=== PATIENT | female | born 1955 | race African-American/Black ===

== ENCOUNTER 2016-06-27 05:51 | Emergency (ER) | payer MEDICAID ==
[~2016-06-27] VITALS: Ht 165.1 cm; Wt 96.0 kg
[2016-06-27] MEDS ORDERED: MORPHINE SULFATE 4 MG/ML CPJ (NOT FOR IM USE) IV STA (06:28)
[2016-06-27] MEDS ORDERED: SODIUM CHLORIDE 0.9% 1,000 ML IV ONE (06:28)
[2016-06-27] MEDS ORDERED: ONDANSETRON HCL 4MG/2ML VIAL IV STA (06:28)
[2016-06-27 06:49] LABS: BASOPHILS % 0.4 % (0.0-2.0); EOSINOPHILS % 0.3 % (0.0-5.0); HEMATOCRIT. 39.6 % (36.0-48.0); HEMOGLOBIN. 13.3 g/dL (12.0-16.0); MEAN CORPUSCULAR HEMOGLOBIN 29.3 pg (28.0-32.0); MEAN CORPUSCULAR HGB CONC 33.6 g/dL (31.0-37.0); MEAN CORPUSCULAR VOLUME 87.1 fL (81.0-99.0); MEAN PLATELET VOLUME 7.8 fl (7.4-10.4); MONOCYTES % 3.9 % (2.0-8.0); NEUTROPHILS % 72.4 % (40.0-76.0); PLATELET 239 x1000/uL (130-400); RED BLOOD CELL COUNT 4.54 mill/uL (4.2-5.4); RED CELL DISTRIBUTION WIDTH 12.5 % (11.6-14.6); WHITE BLOOD COUNT 9.7 x1000/uL (4.5-11.0)
[2016-06-27 06:55] LABS: PROTHROMBIN TIME 10.6 sec
[2016-06-27 07:02] LABS: ALANINE AMINOTRANSFERASE 26 IU/L (13-61); ALBUMIN 3.5 g/dL (3.4-5.0); ANION GAP 12; CALCIUM 8.6 mg/dL (8.5-10.1); CARBON DIOXIDE 26 mEq/L (21-32); CHLORIDE 110 mEq/L (98-107); INDEX HEMOLYSI 1 (1-3); INDEX ICTERIC 1 (1-4); INDEX LIPEMIC 1 (1-3); UREA NITROGEN BLOOD 19 mg/dL (7-21); eGFR > 60 mL/min (>60)
[2016-06-27 10:45] LABS: CLARITY URINE TURBID (CLEAR); COLOR URINE YELLOW (YELLOW); GLUCOSE URINE NEGATIVE (NEGATIVE); KETONES URINE NEGATIVE (NEGATIVE); LEUKOCYTE ESTERASE URINE 3+ (NEGATIVE); NITRITE URINE POSITIVE (NEGATIVE); OCCULT BLOOD URINE NEGATIVE (NEGATIVE); PROTEIN URINE NEGATIVE (NEGATIVE); SPECIFIC GRAVITY URINE 1.026 (1.005-1.030); UROBILINOGEN URINE 0.2 E.U./dL (0.2-1.0)
[2016-06-27 10:57] LABS: SQUAMOUS EPITHELIAL CELL URINE 3+ /lpf (RARE/1+)
[2016-06-27 10:58] LABS: BACTERIA URINE 3+; TRICHOMONAS URINE 1+; WBC URINE 25-50 /hpf (0-2)
[2016-06-27 10:59] LABS: RBC URINE 0-2 /hpf (0-2)
[2016-06-27 12:00] VITALS: BP 134/74
== END 2016-06-27 12:28 | disposition home or self-care (01) ==
LOC: ER 05:57 → SUPCPDRO 06-30 16:36
DX: S80.12XA Contusion of left lower leg, initial encounter (principal); N39.0 Urinary tract infection, site not specified; F17.210 Nicotine dependence, cigarettes, uncomplicated; V09.9XXA Pedestrian injured in unspecified transport accident, initial encounter; Y93.89 Activity, other specified; Y92.488 Other paved roadways as the place of occurrence of the external cause; Y99.8 Other external cause status
CPT/HCPCS: 29515; 36415; 72100; 73502; 73552; 73590; 73630; 80053; 81001; 85025; 85610; 93005; 96361; 96374; 96375; 99285; J2270; J2405; J7030; Z7610

== ENCOUNTER 2016-08-07 14:48 | Inpatient (IN) | payer MEDICAID ==
[~2016-08-07] VITALS: Ht 165.1 cm; Wt 97.5 kg
[~2016-08-07 14:48] MED LIST: AMOX1TAB16 PO; HYDR-523 PO; SILV20CR14 TOP
[2016-08-07] MEDS ORDERED: NAPR-679 PO (15:05)
[2016-08-07] MEDS ORDERED: PIPERACILLIN/TAZ 3.375G PREMIX 50 ML IV ONE (17:00)
[2016-08-07] MEDS ORDERED: VANCOMYCIN 1 G PREMIX 200 ML IV ONE (17:00)
[2016-08-07 17:35] LABS: EOSINOPHILS % 1.2 % (0.0-5.0); HEMATOCRIT. 37.6 % (36.0-48.0); HEMOGLOBIN. 12.7 g/dL (12.0-16.0); LYMPHOCYTES % 37.7 % (20.0-50.0); MEAN CORPUSCULAR HEMOGLOBIN 29.2 pg (28.0-32.0); MEAN CORPUSCULAR HGB CONC 33.8 g/dL (31.0-37.0); MEAN CORPUSCULAR VOLUME 86.3 fL (81.0-99.0); MEAN PLATELET VOLUME 7.8 fl (7.4-10.4); MONOCYTES % 4.2 % (2.0-8.0); NEUTROPHILS % 55.9 % (40.0-76.0); PLATELET 285 x1000/uL (130-400); RED BLOOD CELL COUNT 4.36 mill/uL (4.2-5.4); RED CELL DISTRIBUTION WIDTH 13.2 % (11.6-14.6); WHITE BLOOD COUNT 5.4 x1000/uL (4.5-11.0)
[2016-08-07 17:51] LABS: ALANINE AMINOTRANSFERASE 20 IU/L (13-61); ALBUMIN 3.7 g/dL (3.4-5.0); ANION GAP 13; CALCIUM 9.1 mg/dL (8.5-10.1); CARBON DIOXIDE 25 mEq/L (21-32); CHLORIDE 109 mEq/L (98-107); INDEX HEMOLYSI 1 (1-3); INDEX ICTERIC 1 (1-4); INDEX LIPEMIC 1 (1-3); UREA NITROGEN BLOOD 16 mg/dL (7-21); eGFR > 60 mL/min (>60)
[2016-08-07 18:03] LABS: CLARITY URINE CLEAR (CLEAR); COLOR URINE YELLOW (YELLOW); GLUCOSE URINE NEGATIVE (NEGATIVE); KETONES URINE NEGATIVE (NEGATIVE); LEUKOCYTE ESTERASE URINE 1+ (NEGATIVE); NITRITE URINE NEGATIVE (NEGATIVE); OCCULT BLOOD URINE NEGATIVE (NEGATIVE); PH URINE 5.5 (4.5-8.0); PROTEIN URINE NEGATIVE (NEGATIVE); SPECIFIC GRAVITY URINE 1.029 (1.005-1.030)
[2016-08-07 18:53] LABS: BACTERIA URINE 2+; RBC URINE 0-2 /hpf (0-2); SQUAMOUS EPITHELIAL CELL URINE 1+ /lpf (RARE/1+)
[2016-08-07] MEDS ORDERED: ACETAMINOPHEN 325MG TABLET PO PRN (19:15)
[2016-08-07] MEDS ORDERED: ONDANSETRON HCL 4MG/2ML VIAL IV PRN (19:15)
[2016-08-07] MEDS ORDERED: CLONIDINE 0.1MG TABLET PO PRN (19:15)
[2016-08-07] MEDS ORDERED: IPRATROPIUM/ALBUTEROL 0.5-3(2.5)MG/3ML NEB INH PRN (19:15)
[2016-08-07 21:52] VITALS: BP 118/76
[2016-08-07 22:30] VITALS: BP 115/75
[2016-08-08] VITALS: BP 115/75
[2016-08-08] MEDS: HYDROCODONE/ACETAMINOPHEN 5/325MG TABLET PO PRN ×3 (01:10→18:44)
[2016-08-08] MEDS: CEFTRIAXONE 1 G PREMIX 50 ML IV SCH (01:14)
[2016-08-08 04:00] VITALS: BP 102/65
[2016-08-08] MEDS ORDERED: HYDROCODONE/ACETAMINOPHEN 5/325MG TABLET PO PRN (05:45)
[2016-08-08 07:15] LABS: BASOPHILS % 0.7 % (0.0-2.0); EOSINOPHILS % 2.4 % (0.0-5.0); HEMATOCRIT. 36.3 % (36.0-48.0); HEMOGLOBIN. 12.1 g/dL (12.0-16.0); LYMPHOCYTES % 31.4 % (20.0-50.0); MEAN CORPUSCULAR HEMOGLOBIN 29.1 pg (28.0-32.0); MEAN CORPUSCULAR HGB CONC 33.4 g/dL (31.0-37.0); MONOCYTES % 7.6 % (2.0-8.0); NEUTROPHILS % 57.9 % (40.0-76.0); PLATELET 252 x1000/uL (130-400); RED BLOOD CELL COUNT 4.17 mill/uL (4.2-5.4); RED CELL DISTRIBUTION WIDTH 12.9 % (11.6-14.6); WHITE BLOOD COUNT 4.2 x1000/uL (4.5-11.0)
[2016-08-08 07:21] LABS: ALANINE AMINOTRANSFERASE 20 IU/L (13-61); ALBUMIN 3.2 g/dL (3.4-5.0); ANION GAP 11; CALCIUM 8.6 mg/dL (8.5-10.1); CARBON DIOXIDE 26 mEq/L (21-32); CHLORIDE 109 mEq/L (98-107); INDEX HEMOLYSI 1 (1-3); INDEX ICTERIC 1 (1-4); INDEX LIPEMIC 1 (1-3); TRIGLYCERIDE 186 mg/dL (0-150); UREA NITROGEN BLOOD 15 mg/dL (7-21); eGFR > 60 mL/min (>60)
[2016-08-08 07:25] LABS: HDL CHOLESTEROL 34 mg/dL (40-59); LDL CHOLESTEROL 139 mg/dL (5-100); TROPONIN I < 0.02 ng/mL (0.00-0.04)
[2016-08-08 08:00] VITALS: BP 107/63
[2016-08-08 12:00] VITALS: BP 115/64
[2016-08-08 16:00] VITALS: BP 124/104
[2016-08-08 20:20] VITALS: BP 97/58
[2016-08-09] VITALS: BP 100/64
[2016-08-09] MEDS: CEFTRIAXONE 1 G PREMIX 50 ML IV SCH (01:00)
[2016-08-09] MEDS: DIPHENHYDRAMINE 50MG/ML VIAL IV PRN (01:14)
[2016-08-09 05:15] VITALS: BP 101/77
[2016-08-09 08:00] VITALS: BP 112/64
[2016-08-09] MEDS: HYDROCODONE/ACETAMINOPHEN 5/325MG TABLET PO PRN (11:08)
[2016-08-09 12:00] VITALS: BP 108/68
[2016-08-09 16:00] VITALS: BP 99/55
[2016-08-09 20:00] VITALS: BP 98/64
[2016-08-10] VITALS: BP 115/59
[2016-08-10] MEDS: DIPHENHYDRAMINE 50MG/ML VIAL IV PRN (01:32)
[2016-08-10] MEDS: CEFTRIAXONE 1 G PREMIX 50 ML IV SCH (03:09)
[2016-08-10 04:00] VITALS: BP 109/65
[2016-08-10 08:00] VITALS: BP 114/71
[2016-08-10 12:00] VITALS: BP 110/75
[2016-08-10] MEDS: HYDROCODONE/ACETAMINOPHEN 5/325MG TABLET PO PRN (13:49)
[2016-08-10 16:00] VITALS: BP 111/71
[2016-08-10 20:00] VITALS: BP 110/73
[2016-08-10] MEDS: ATORVASTATIN CALCIUM 10MG TABLET PO SCH (22:08)
[2016-08-10] MEDS: NEOMY SULF/BACITRAC ZN/POLY OINT 28GM TOP SCH (22:09)
[2016-08-11] VITALS: BP 109/61
[2016-08-11] MEDS: CEFTRIAXONE 1 G PREMIX 50 ML IV SCH (02:12)
[2016-08-11 04:00] VITALS: BP 127/71
[2016-08-11] MEDS: HYDROCODONE/ACETAMINOPHEN 5/325MG TABLET PO PRN ×4 (04:22→23:08)
[2016-08-11 06:45] LABS: ANION GAP 12; CARBON DIOXIDE 25 mEq/L (21-32); CHLORIDE 106 mEq/L (98-107); INDEX HEMOLYSI 1 (1-3); INDEX ICTERIC 1 (1-4); INDEX LIPEMIC 1 (1-3); UREA NITROGEN BLOOD 20 mg/dL (7-21); eGFR > 60 mL/min (>60)
[2016-08-11 06:53] LABS: BASOPHILS % 0.5 % (0.0-2.0); EOSINOPHILS % 1.6 % (0.0-5.0); HEMATOCRIT. 36.2 % (36.0-48.0); HEMOGLOBIN. 12.5 g/dL (12.0-16.0); LYMPHOCYTES % 47.5 % (20.0-50.0); MEAN CORPUSCULAR HEMOGLOBIN 29.5 pg (28.0-32.0); MEAN CORPUSCULAR HGB CONC 34.6 g/dL (31.0-37.0); MEAN CORPUSCULAR VOLUME 85.2 fL (81.0-99.0); MEAN PLATELET VOLUME 8.5 fl (7.4-10.4); MONOCYTES % 6.6 % (2.0-8.0); NEUTROPHILS % 43.8 % (40.0-76.0); PLATELET 260 x1000/uL (130-400); RED BLOOD CELL COUNT 4.25 mill/uL (4.2-5.4); RED CELL DISTRIBUTION WIDTH 12.7 % (11.6-14.6); WHITE BLOOD COUNT 4.2 x1000/uL (4.5-11.0)
[2016-08-11 08:00] VITALS: BP 121/73
[2016-08-11] MEDS: NEOMY SULF/BACITRAC ZN/POLY OINT 28GM TOP SCH ×2 (09:20→23:06)
[2016-08-11 12:00] VITALS: BP 114/68
[2016-08-11] MEDS ORDERED: ATOR10TA PO (14:45)
[2016-08-11 16:00] VITALS: BP 112/65
[2016-08-11 20:00] VITALS: BP 128/69
[2016-08-11] MEDS ORDERED: VANCOMYCIN 2,000 MG in DEXT 5% WATER 500 ML IV NR (21:00)
[2016-08-11] MEDS: ATORVASTATIN CALCIUM 10MG TABLET PO SCH (23:06)
[2016-08-12] VITALS (7 sets, daily range): BP systolic 95–120; BP diastolic 50–69
[2016-08-12] MEDS: NEOMY SULF/BACITRAC ZN/POLY OINT 28GM TOP SCH (08:21)
[2016-08-12] MEDS ORDERED: VANCOMYCIN 1 G PREMIX 200 ML IV SCH (09:00)
[2016-08-12] MEDS ORDERED: BUPIVACAINE HCL 0.5% (5MG/ML) 50ML IR ONE (13:00)
[2016-08-12] MEDS ORDERED: LIDOCAINE HCL 2% 5ML SYRINGE IV ONE (13:00)
[2016-08-12] MEDS ORDERED: BUPIVACAINE HCL/PF 0.5% (5MG/ML) 10ML INFIL NR (13:30)
[2016-08-12] MEDS ORDERED: LIDOCAINE HCL/PF 2% 20 MG/ML 10ML VIAL IJ NR (13:30)
[2016-08-12] MEDS: HYDROCODONE/ACETAMINOPHEN 5/325MG TABLET PO PRN (18:47)
[2016-08-12] MEDS ORDERED: VANCOMYCIN 1250MG in DEXTROSE 5% WATER 250ML IV SCH (21:00)
== END 2016-08-12 20:50 | disposition home or self-care (01) | DRG 383 ==
LOC: ER 14:49 → 6EST 19:11
PROVIDERS: ADMIT Internal Medicine; ATTEND Internal Medicine
PROC: 0JBR0ZZ Excision of Left Foot Subcutaneous Tissue and Fascia, Open Approach (ICD-10-PCS; principal; 2016-08-08)
DX: L03.116 Cellulitis of left lower limb (principal); I96 Gangrene, not elsewhere classified; L97.519 Non-pressure chronic ulcer of other part of right foot with unspecified severity; N39.0 Urinary tract infection, site not specified; L97.529 Non-pressure chronic ulcer of other part of left foot with unspecified severity; Z87.891 Personal history of nicotine dependence; L02.611 Cutaneous abscess of right foot
CPT/HCPCS: 36415; 73610; 73630; 73721; 80048; 80053; 80061; 80202; 81001; 83605; 84484; 85025; 87040; 87070; 87086; 87205; 93971; 96365; 96366; 96368; 97162; 99285; J0696; J1200; J2543; J3370; J3490; J7040; J7060

== ENCOUNTER 2017-09-30 19:15 | Emergency (ER) | payer MEDICAID ==
[~2017-09-30] VITALS: Ht 175.3 cm; Wt 87.0 kg
[~2017-09-30 19:15] MED LIST changes: -AMOX1TAB16 PO; +ATOR10TA PO; +NAPR-679 PO; -SILV20CR14 TOP
[2017-09-30] MEDS ORDERED: CYCLOBENZAPRINE 10MG TABLET PO ONE (22:15)
[2017-09-30] MEDS ORDERED: KETOROLAC 60MG/2ML VIAL IM ONE (22:15)
[2017-10-01 00:53] VITALS: BP 108/76
== END 2017-10-01 01:01 | disposition home or self-care (01) ==
LOC: ER 19:15
DX: S39.012A Strain of muscle, fascia and tendon of lower back, initial encounter (principal); V43.62XA Car passenger injured in collision with other type car in traffic accident, initial encounter; Y93.9 Activity, unspecified; Y92.410 Unspecified street and highway as the place of occurrence of the external cause
CPT/HCPCS: 72100; 96372; 99284; J1885